=== PATIENT | male | born 1995 | race Native Hawaiian/Other Pacific Islander ===

== ENCOUNTER 2018-04-21 08:53 | Outpatient (CLI) | payer OTHER | END 2018-04-21 19:58 | disposition home or self-care (01) | LOC: RAD 08:53 | DX: M25.552 Pain in left hip (principal) ==

== ENCOUNTER 2018-12-17 09:29 | Outpatient (CLI) | payer BC ==
[~2018-12-17] VITALS: Ht 185.4 cm; Wt 106.6 kg
[2018-12-17 09:40] VITALS: BP 108/68; TEMP 98.1
== END 2018-12-17 13:34 | disposition home or self-care (01) ==
LOC: INF 09:29
DX: M1A.9XX0 Chronic gout, unspecified, without tophus (tophi) (principal)
CPT/HCPCS: 36591; 84550; 96365; 96366; J2507

== ENCOUNTER 2019-01-01 08:57 | Outpatient (CLI) | payer BC ==
[~2019-01-01] VITALS: Ht 185.4 cm; Wt 106.6 kg
[2019-01-01 09:00] VITALS: BP 105/57; TEMP 97.7
[2019-01-01 13:15] VITALS: BP 112/67; TEMP 97.7
== END 2019-01-01 13:32 | disposition home or self-care (01) ==
LOC: INF 08:57
DX: M1A.9XX0 Chronic gout, unspecified, without tophus (tophi) (principal)
CPT/HCPCS: 36591; 84550; 96365; 96366; J2507

== ENCOUNTER 2019-01-18 09:15 | Outpatient (CLI) | payer BC ==
[~2019-01-18] VITALS: Ht 185.4 cm; Wt 106.6 kg
[2019-01-18 09:35] VITALS: BP 109/56; TEMP 98.2
== END 2019-01-18 12:45 | disposition home or self-care (01) ==
LOC: INF 09:15
DX: M1A.9XX0 Chronic gout, unspecified, without tophus (tophi) (principal)
CPT/HCPCS: 36591; 84550; 96365; 96366; J2507

== ENCOUNTER 2019-02-01 09:07 | Outpatient (CLI) | payer BC ==
[~2019-02-01] VITALS: Ht 185.4 cm; Wt 106.6 kg
[2019-02-01 09:12] VITALS: BP 114/60; TEMP 97.6
== END 2019-02-01 12:17 | disposition home or self-care (01) ==
LOC: INF 09:07
DX: M1A.9XX0 Chronic gout, unspecified, without tophus (tophi) (principal)
CPT/HCPCS: 36591; 84550; 96365; 96366; J2507

== ENCOUNTER 2019-02-15 09:13 | Outpatient (CLI) | payer BC ==
[~2019-02-15] VITALS: Ht 185.4 cm; Wt 106.6 kg
[2019-02-15 09:45] VITALS: BP 98/51; TEMP 98.3
== END 2019-02-15 19:31 | disposition home or self-care (01) ==
LOC: INF 09:13
DX: M1A.9XX0 Chronic gout, unspecified, without tophus (tophi) (principal)
CPT/HCPCS: 36591; 84550; 96365; 96366; J2507

== ENCOUNTER 2019-03-01 08:54 | Outpatient (CLI) | payer BC ==
[~2019-03-01] VITALS: Ht 185.4 cm; Wt 97.5 kg
[2019-03-01 09:10] VITALS: BP 113/57; TEMP 97.6
== END 2019-03-01 20:20 | disposition home or self-care (01) ==
LOC: INF 08:54
DX: M1A.9XX0 Chronic gout, unspecified, without tophus (tophi) (principal)
CPT/HCPCS: 36591; 84550; 96365; 96366; J2507

== ENCOUNTER 2019-03-15 09:36 | Outpatient (CLI) | payer BC ==
[~2019-03-15] VITALS: Ht 185.4 cm; Wt 106.6 kg
[2019-03-15 09:55] VITALS: BP 124/57; TEMP 98
== END 2019-03-15 13:02 | disposition home or self-care (01) ==
LOC: INF 09:36
DX: M1A.9XX0 Chronic gout, unspecified, without tophus (tophi) (principal)
CPT/HCPCS: 36591; 84550; 96365; 96366; J0897; J2507

== ENCOUNTER 2019-04-14 08:52 | Outpatient (CLI) | payer BC ==
[~2019-04-14] VITALS: Ht 185.4 cm; Wt 106.6 kg
[2019-04-14 08:55] VITALS: BP 98/54; TEMP 98.6
== END 2019-04-14 23:32 | disposition home or self-care (01) ==
LOC: INF 08:52
DX: M1A.9XX0 Chronic gout, unspecified, without tophus (tophi) (principal)
CPT/HCPCS: 36591; 84550; 96365; 96366; J2507

== ENCOUNTER 2019-04-27 09:01 | Outpatient (CLI) | payer BC | END 2019-04-27 19:10 | disposition home or self-care (01) | LOC: LABW 09:01 | DX: M1A.9XX0 Chronic gout, unspecified, without tophus (tophi) (principal) | CPT/HCPCS: 36415; 84550 ==

== ENCOUNTER 2019-04-28 08:44 | Outpatient (CLI) | payer BC ==
[~2019-04-28] VITALS: Ht 185.4 cm; Wt 92.1 kg
[2019-04-28 08:45] VITALS: BP 104/61; TEMP 98
== END 2019-04-28 12:06 | disposition home or self-care (01) ==
LOC: INF 08:44
DX: M1A.9XX0 Chronic gout, unspecified, without tophus (tophi) (principal)
CPT/HCPCS: 96365; 96366; J2507

== ENCOUNTER 2019-05-11 14:23 | Outpatient (CLI) | payer BC | END 2019-05-11 23:30 | disposition home or self-care (01) | LOC: LABW 14:23 | DX: M1A.9XX0 Chronic gout, unspecified, without tophus (tophi) (principal) | CPT/HCPCS: 36415; 84550 ==

== ENCOUNTER 2019-05-12 08:13 | Outpatient (CLI) | payer BC ==
[~2019-05-12] VITALS: Ht 185.4 cm; Wt 93.0 kg
[2019-05-12 08:20] VITALS: BP 99/57; TEMP 98.4
== END 2019-05-12 11:46 | disposition home or self-care (01) ==
LOC: INF 08:13
DX: M1A.9XX0 Chronic gout, unspecified, without tophus (tophi) (principal)
CPT/HCPCS: 96365; 96366; J2507

== ENCOUNTER 2019-05-26 08:31 | Outpatient (CLI) | payer BC ==
[~2019-05-26] VITALS: Ht 185.4 cm; Wt 106.6 kg
[2019-05-26 09:00] VITALS: BP 104/52; TEMP 98.2
[2019-05-26 12:26] VITALS: BP 90/52; TEMP 98.5
== END 2019-05-26 22:14 | disposition home or self-care (01) ==
LOC: INF 08:31
DX: M1A.9XX0 Chronic gout, unspecified, without tophus (tophi) (principal)
CPT/HCPCS: 36415; 84550; 96365; 96366; J2507